=== PATIENT | female | born 1980 | race American Indian/Alaskan Native ===

== ENCOUNTER 2020-02-04 12:25 | Emergency (ER) | payer SELFPAY ==
[2020-02-04 12:33] VITALS: BP 108/65
--- NOTE | 2020-02-04 12:46 | Event Note ---
ED Screening Note ED Screening Note: lower abd discomfort since IUD removal states that she had an IUD removed 01/23/2020 states that she went back to [facility] states that they did a test and it was negative states they wrote her toradol to take and doxycycline states she was having dysuria but that resolved no fever no vaginal bleeding no n/v/d in the last three days PMHx none no allergies to meds This initial assessment/diagnostic orders/clinical plan/treatment(s) is/are subject to change based on patients health status, clinical progression and re- assessment by fellow clinical providers in the ED. Further treatment and workup at subsequent clinical providers discretion. Patient/guardian urged not to elope from the ED as their condition may be serious if not clinically assessed and managed. Initial orders include: ua, urine preg, US
[2020-02-04 13:12] LABS: Bacteria,Urine 1+ /HPF (Negative); Bilirubin,Urine NEG (Negative); Blood,Urine NEG (Negative); Color,Urine Yellow (Yellow); Mucus,Urine FEW /HPF; Protein,Urine <15 mg/dL mg/dL (Negative)
[2020-02-04 13:13] LABS: HCG Qualitative,Urine Negative (Negative)
--- NOTE | 2020-02-04 14:50 | Ultrasound Report ---
PELVIC ULTRASOUND INDICATION: Recent IUD removal, lower abdominal pain COMPARISON: None TECHNIQUE: Transabdominal and endovaginal FINDINGS: On transabdominal study uterus measures 8.2 x 5.4 x 6.3 cm. Endometrial stripe on the endov aginal study measures 10 mm.No uterine abnormalities are seen. No fluid is seen within the endometria l canal. No IUD or fragments are identified. Left ovary is not definitely seen. In the left adnexal area there is a 3.6 cm cyst without an obvious solid component and without vascularity. This is adjacent to an area of apparent free fluid. What is possibly the left ovary is noted just posterior to this area. The right ovary measures 6.8 cm in length and shows blood flow. Right ovary contains a solid or promi nently complex cystic area measuring 4.5 cm with mixed internal echogenicity but without obvious bloo d flow though probably this is a complex cystic region. Other small complex ovarian cysts are seen. Moderate amount of free fluid is seen without significant internal echoes. IMPRESSION: 1. No uterine abnormality is seen. No IUD or IUD fragments are noted. No obvious uterine injury is id entified. 2. Right ovarian complex lesion, probably a complex cyst as above. This probably is a hemorrhagic cys t but I would recommend follow-up. 3. Benign-appearing simple cyst in the left adnexal area but without obvious association with a oscar l left ovary. The left ovary itself is only questionably seen. I doubt this is significant but recomm end follow-up. 4. Moderate amount of free fluid is seen in the pelvis but without internal echogenicity to suggest b lood. This is nonspecific. Signer Name: Miki Gunderson MD Signed: 02/04/2020 2:46 PM Workstation Name: [id number]
[2020-02-04] MEDS ORDERED: KETOROLAC 30 MG/1 ML INJ IV ONE (15:15)
[2020-02-04 15:27] LABS: Basophils % (Auto) 0.1 % (0.0-1.8); Eosinophils % (Auto) 0.2 % (0.0-4.3); Hematocrit 30.9 % (30.3-42.9); Hemoglobin 10.3 gm/dl (10.1-14.3); Lymphocytes # (Auto) 0.7 K/mm3 (1.2-5.4); Lymphocytes % (Auto) 4.5 % (13.4-35.0); Mean Corpuscular HGB Conc 34 % (30-34); Mean Corpuscular Volume 88 fl (79-97); Monocytes # (Auto) 1.3 K/mm3 (0.0-0.8); Monocytes % (Auto) 9.3 % (0.0-7.3); Platelet Count 494 K/mm3 (140-440); Red Blood Count 3.53 M/mm3 (3.65-5.03); Red Cell Distribution Width 14.2 % (13.2-15.2)
[2020-02-04] MEDS ORDERED: SODIUM CHLORIDE 0.9% 1000 ML 1,000 ML IV ONE (15:31)
[2020-02-04] MEDS ORDERED: MORPHINE 4 MG/1 ML INJ IV ONE (15:31)
[2020-02-04] MEDS ORDERED: ONDANSETRON 4 MG/2 ML INJ IV ONE (15:31)
[2020-02-04 15:51] LABS: Alanine Aminotransferase 8 units/L (7-56); Albumin 2.8 g/dL (3.9-5); BUN/Creatinine Ratio 11; Bilirubin,Direct 0.2 mg/dL (0-0.2); Blood Urea Nitrogen 8 mg/dL (7-17); Calcium 8.6 mg/dL (8.4-10.2); Hemolysis Index 4
[2020-02-04] MEDS ORDERED: POTASSIUM CHLORIDE ER 20 MEQ TAB PO ONE (15:56)
--- NOTE | 2020-02-04 16:26 | Emergency Department Report ---
ED Female HPI - General Chief complaint: Abdominal Pain Stated complaint: ABD PAIN Time Seen by Provider: 02/04/20 12:42 Source: patient Mode of arrival: Ambulatory Limitations: No Limitations - History of Present Illness Initial comments: This is a 39-year-old female nontoxic, well nourished in appearance, no acute signs of distress presents to the ED with c/o of pelvic pain 3 weeks. Stated symptoms has started after IUD was removed. Patient is taking Doxy and flagyl x2 days. Patient denies any n/v. Patient describes pelvic pain as cramping and aching with level of 8/10 diffuse. Patient denies chest pain, short of breath, fever, hemoptysis, blood in stool, chills, headache, stiff neck, numbness or tingling. Agrees to dysuria. Patient denies any diarrhea or constipation. Denies any vaginal discharge or vaginal bleeding. Denies any flank pain. Denies any blood in stool. Patient denies any recent travels. Patient denies any giovanny rgies or significant PMH. MD Complaint: pelvic pain -: week(s) (3) Radiation: non-radiating Severity: mild Severity scale (0 -10): 8 Quality: cramping Consistency: intermittent Improves with: none Worsens with: none Associated Symptoms: dysuria, other (pelvic pain). denies: vaginal discharge, vaginal bleeding, abdominal pain, nausea/vomiting, fever/chills, headaches, loss of appetite, hematuria, rash, seizure, shortness of breath, syncope, weakness - Related Data Previous Rx's Medication Instructions Recorded Last Taken Type cephALEXin [Keflex] 500 mg PO Q8HR #21 cap 02/04/20 Unknown Rx Allergies Allergy/AdvReac Type Severity Reaction Status Date / Time No Known Allergies Allergy Unverified 02/04/20 12:42 ED Review of Systems ROS: Stated complaint: ABD PAIN Other details as noted in HPI Constitutional: denies: chills, fever Eyes: denies: eye pain, eye discharge, vision change ENT: denies: ear pain, throat pain Respiratory: denies: cough, shortness of breath, wheezing Cardiovascular: denies: chest pain, palpitations Endocrine: no symptoms reported Gastrointestinal: denies: abdominal pain, nausea, diarrhea Genitourinary: dysuria. denies: urgency, frequency, hematuria, discharge, abnormal menses, dyspareunia Musculoskeletal: denies: back pain, joint swelling, arthralgia Skin: denies: rash, lesions Neurological: denies: headache, weakness, paresthesias Psychiatric: denies: anxiety, depression Hematological/Lymphatic: denies: easy bleeding, easy bruising ED Past Medical Hx - Past Medical History Previous Medical History?: No - Surgical History Past Surgical History?: No - Social History Smoking Status: Current Every Day Smoker Substance Use Type: Alcohol - Medications Home Medications: Home Medications Medication Instructions Recorded Confirmed Last Taken Type cephALEXin [Keflex] 500 mg PO Q8HR #21 cap 02/04/20 Unknown Rx ED Physical Exam - General Limitations: No Limitations General appearance: alert, in no apparent distress - Head Head exam: Present: atraumatic, normocephalic - Eye Eye exam: Present: normal appearance - Neck Neck exam: Present: normal inspection, full ROM. Absent: tenderness, meningismus, lymphadenopathy - Respiratory Respiratory exam: Present: normal lung sounds bilaterally. Absent: respiratory distress, wheezes, rales, rhonchi, stridor, chest wall tenderness, accessory muscle use, decreased breath sounds, prolonged expiratory - Cardiovascular Cardiovascular Exam: Present: regular rate, normal rhythm, normal heart sounds. Absent: irregular rhythm, systolic murmur, diastolic murmur, rubs, gallop - GI/Abdominal GI/Abdominal exam: Present: soft, tenderness (bilateral lower abdominal area), normal bowel sounds. Absent: distended, guarding, rebound, rigid, diminished bowel sounds - External exam: Present: normal external exam, other (Handbag Framer Elyes present during exam). Absent: erythema, swelling, lesions, lacerations, ecchymosis, b leeding Speculum exam: Present: cervical discharge, other (Handbag Framer Elyse present during exam). Absent: erythema, vaginal discharge, vaginal bleeding, foreign body, tissue, laceration Bi-manual exam: Present: cervical motion tendernes, other (Handbag Framer Elyse present during exam). Absent: adnexal tenderness, adnexal mass, uterine enlargement, uterine tenderness - Extremities Exam Extremities exam: Present: normal inspection, full ROM, normal capillary refill. Absent: tenderness - Back Exam Back exam: Present: normal inspection, full ROM. Absent: tenderness, CVA tenderness (R), CVA tenderness (L), muscle spasm, paraspinal tenderness, vertebral tenderness, rash noted - Neurological Exam Neurological exam: Present: alert, oriented X3, normal gait - Psychiatric Psychiatric exam: Present: normal affect, normal mood - Skin Skin exam: Present: warm, dry, intact, normal color. Absent: rash ED Course Vital Signs 02/04/20 12:29 Temperature 98.8 F Pulse Rate 93 H Respiratory 20 Rate Blood Pressure 108/65 O2 Sat by Pulse 100 Oximetry - Reevaluation(s) Reevaluation #1: 02/04/20 16:36 Patient is speaking in full sentences with no signs of distress noted. ED Medical Decision Making - Lab Data Result diagrams: 02/04/20 15:11 02/04/20 15:11 Lab Results 02/04/20 02/04/20 02/04/20 Range/Units 12:57 15:11 15:11 WBC 14.4 H (4.5-11.0) K/mm3 RBC 3.53 L (3.65-5.03) M/mm3 Hgb 10.3 (10.1-14.3) gm/dl Hct 30.9 (30.3-42.9) % MCV 88 (79-97) fl MCH 29 (28-32) pg MCHC 34 (30-34) % RDW 14.2 (13.2-15.2) % Plt Count 494 H (140-440) K/mm3 Lymph % (Auto) 4.5 L (13.4-35.0) % [place] % (Auto) 9.3 H (0.0-7.3) % Eos % (Auto) 0.2 (0.0-4.3) % Baso % (Auto) 0.1 (0.0-1.8) % Lymph # 0.7 L (1.2-5.4) K/mm3 [place] # 1.3 H (0.0-0.8) K/mm3 Eos # 0.0 (0.0-0.4) K/mm3 Baso # 0.0 (0.0-0.1) K/mm3 Seg Neutrophils % 85.9 H (40.0-70.0) % Seg Neutrophils # 12.3 H (1.8-7.7) K/mm3 Sodium 136 L (137-145) mmol/L Potassium 3.3 L (3.6-5.0) mmol/L Chloride 98.5 (98-107) mmol/L Carbon Dioxide 23 (22-30) mmol/L Anion Gap 18 mmol/L BUN 8 (7-17) mg/dL Creatinine 0.7 (0.7-1.2) mg/dL Estimated GFR > 60 ml/min BUN/Creatinine Ratio 11 % Glucose 105 H (65-100) mg/dL Calcium 8.6 (8.4-10.2) mg/dL Total Bilirubin 0.50 (0.1-1.2) mg/dL Direct Bilirubin 0.2 (0-0.2) mg/dL Indirect Bilirubin 0.3 mg/dL AST 10 (5-40) units/L ALT 8 (7-56) units/L Alkaline Phosphatase 83 (35-129) units/L Total Protein 7.8 (6.3-8.2) g/dL Albumin 2.8 L (3.9-5) g/dL Albumin/Globulin Ratio 0.6 % Urine Color Yellow (Yellow) Urine Turbidity Slightly-cloudy (Clear) Urine pH 6.0 (5.0-7.0) Ur Specific [place] 1.012 (1.003-1.030) Urine Protein <15 mg/dl (Negative) mg/dL Urine Glucose (UA) Neg (Negative) mg/dL Urine Ketones Neg (Negative) mg/dL Urine Blood Neg (Negative) Urine Nitrite Neg (Negative) Urine Bilirubin Neg (Negative) Urine Urobilinogen 4.0 (<2.0) mg/dL Ur Leukocyte Esterase Sm (Negative) Urine WBC (Auto) 9.0 H (0.0-6.0) /HPF Urine RBC (Auto) 7.0 (0.0-6.0) /HPF U Epithel Cells (Auto) 18.0 H (0-13.0) /HPF Urine Bacteria (Auto) 1+ (Negative) /HPF Urine Mucus Few /HPF Urine HCG, Qual Negative (Negative) - Radiology Data Addendum: Impression: 4. Mild lymph node prominence in the retroperitoneum and pelvis. These may be reactive to the process in the pelvis but I would suggest follow-up. 5. Left lower lobe nodule. Recommend follow-up. INCIDENTAL PULMONARY NODULE RECOMMENDATIONS Solid Nodule size* <6 mm -- Single or Multiple - Low Risk Patient: No routine follow-up - High Risk Patient: Optional CT at 12 months Solid Nodule size 6-8 mm -- Single - Low Risk Patient: CT at 6-12 months, then consider CT at 18-24 months - High Risk Patient: CT at 6-12 months, then CT at 18-24 months Solid Nodule size 6-8 mm -- Multiple - Low Risk Patient: CT at 3-6 months, then consider CT at 18-24 months - High Risk Patient: CT at 3-6 months, then CT at 18-24 months Solid Nodule size >8 mm -- Single - Low Risk or High Risk Patient: Consider CT at 3 months, PET/CT, or tissue sampling Solid Nodule size >8 mm -- Multiple - Low Risk Patient: CT at 3-6 months, then consider CT at 18-24 months - High Risk Patient: CT at 3-6 months, then CT at 18-24 months S ubsolid Nodule (Ground glass) <6 mm - No routine follow-up Subsolid Nodule (Ground glass) >=6 mm - CT at 6-12 months to confirm persistence, then CT every 2 years until 5 years Subsolid Nodule (Part solid) <6 mm - No routine follow-up Subsolid Nodule (Part solid) >=6 mm - CT at 3-6 months to confirm persistence. If unchanged and solid component remains <6mm, annual CT should be performed for 5 years. Subsolid Nodule (Multiple) <6 mm - CT at 3-6 months. If stable, consider CT at 2 and 4 years. Subsolid Nodule (Multiple) >=6 mm - CT at 3-6 months. Subsequent management based on the most suspicious nodule(s). Note These recommendations do not apply to lung cancer screening, patients with immunosuppression, or patients with known primary cancer. Note Newly detected indeterminate nodule in persons 35 years of age or older. Persons under the age of 35 should not receive follow-up unless there is a known primary cancer. Low Risk Patient -- minimal or absent history of smoking and of other known risk factors. High Risk Patient -- history of smoking or of other known risk factors. *Dimensions are average of long and short axes, rounded to the nearest millimeter. Based on 2017 Fleischner Society Guidelines found in Radiology 2017 284:228-243. [email or web address]/[email or web address] Signer Name: Miki Gunderson MD Signed: 02/04/2020 4:04 PM Workstation Name: [id number] CT ABDOMEN AND PELVIS WITH CONTRAST INDICATION: Recent IUD removal, lower abdominal pain CONTRAST: 100 cc Omnipaque 300 IV COMPARISON: Pelvic ultrasound today All CT scans at this location are performed using CT dose reduction for ALARA by means of automated exposure control. NOTE: Resolution is decreased and artifact is introduced by the patient's size. FINDINGS: Lung bases are clear of infilt rates. In the anterolateral aspect of the left lower lobe peripherally a 6 mm solid nodule is seen. No other nodules are noted. No pneumoperitoneum is seen. No significant abdominal wall herniation is noted though there is mild midline laxity. Liver shows mild fatty infiltration though no obvious focal lesions. Liver is enlarged and has a length of 20.6 cm. Spleen appears within normal limits. No left urinary obstructive changes are seen. However, there is mild prominence of the right renal collecting system and upper right ureter extending to the pelvic brim level without calculi seen. I see no focal lesions of the kidneys, adrenals, or pancreas. Gallbladder and bile ducts appear within normal limits. No evidence of bowel obstruction is seen. Appendix appears within normal limits. Mild lymph node prominence is seen in the periaortic area with multiple small nodes seen measuring up to short axis diameter of 8 mm. These continue in the common iliac areas bilaterally and there are mildly prominent pelvic sidewall nodes in the obturator region measuring up to 2.9 cm in length but with short axis diameters are only up to 8 mm. Several shotty nodes are seen in the inguinal areas bilaterally but particularly in the right inguinal area there are nodes which are mildly prominent without obvious fatty elijah measuring up to short axis diameter of 12 mm. No mesenteric adenopathy is seen. No other adenopathy is noted. Uterus shows no definite abnormalities. There are multiple bilateral adnexal cystic areas. On the right largest cystic area measures 5.6 cm in length and appears to likely correspond to the complex lesion seen on the right ovary on ultrasound. This has an internal density of 25 Hounsfield units mildly above the water range and is fairly homogenous internally with a thin wall. A similar left adnexal cystic area is seen which is ovoid in shape measuring 5.8 cm in length but only 2.6 cm in transverse width. This has a similar appearance and is the internal density measures 20 Hounsfield units at the upper end of the water range. Multiple other smaller cystic areas are seen in both adnexal regions. In the upper portion of the left adnexal region extending well into the upper pelvis is a loculated collection of water density fluid at 14 Hounsfield units which measures 5.8 cm in greatest diameter as seen on coronal images. This does not have a perceptible wall. A similar collection of what is probably loculated peritoneal fluid rather than a true cyst is seen in the left cul-de-sac region measuring 5 cm in length without a perceptible wall and with internal density in the water range at 14 Hounsfield units. There may be mild inflammation of the tissues in this region with mild stranding seen. The sigmoid colon extends through this general area and shows diverticulosis. The mild stranding in the pelvis does include part of this region of the sigmoid colon though I do not strongly favor this representing acute diverticulitis and this may be secondary to the generalized pelvic process. No hematoma is identified. IMPRESSION: 1. Complex cystic areas noted bilaterally in the pelvis as above. Some of these areas appear to represent true cystic areas probably related to the ovaries but others appear more likely represent loculated peritoneal fluid. There is a mildly inflamed appearance to this general area. I cannot exclude the possibility of pelvic inflammatory disease or sequelae with tubo-ovarian complex is. As discussed above there is some stranding which reaches an area of the sigmoid colon with diverticulosis but I do not strongly favor this representing acute diverticulitis. 2. There is evidence of mild right urinary obstruction involving the renal collecting system and upper right ureter which likely is associated with the findings above as rotation appears to extend to this area. No calculi are seen. 3. Mild fatty infiltration of the liver with moderate hepatomegaly Signer Name: Miki Gunderson MD Signed: 02/04/2020 3:52 PM Workstation Name: [id number] PELVIC ULTRASOUND INDICATION: Recent IUD removal, lower abdominal pain COMPARISON: None TECHNIQUE: Transabdominal and endovaginal FINDINGS: On transabdominal study uterus measures 8.2 x 5.4 x 6.3 cm. Endometrial stripe on the endovaginal study measures 10 mm.No uterine abnormalities are seen. No fluid is seen within the endometrial canal. No IUD or fragments are identified. Left ovary is not definitely seen. In the left adnexal area there is a 3.6 cm cyst without an obvious solid component and without vascularity. This is adjacent to an area of apparent free fluid. What is possibly the left ovary is noted just posterior to this area. The right ovary measures 6.8 cm in length and shows blood flow. Right ovary contains a solid or prominently complex cystic area measuring 4.5 cm with mixed internal echogenicity but without obvious blood flow though probably this is a complex cystic region. Other small complex ovarian cysts are seen. Moderate amount of free fluid is seen without significant internal echoes. IMPRESSION: 1. No uterine abnormality is seen. No IUD or IUD fragments are noted. No obvious uterine injury is identified. 2. Right ovarian c omplex lesion, probably a complex cyst as above. This probably is a hemorrhagic cyst but I would recommend follow-up. 3. Benign-appearing simple cyst in the left adnexal area but without obvious association with a normal left ovary. The left ovary itself is only questionably seen. I doubt this is significant but recommend follow-up. 4. Moderate amount of free fluid is seen in the pelvis but without internal echogenicity to suggest blood. This is nonspecific. Signer Name: Miki Gunderson MD Signed: 02/04/2020 1:46 PM Workstation Name: [id number] - Medical Decision Making This is a 39-year-old female that presents with BV, possible STD and UTI. Patient is stable and was examined by me. Patient is currently taking Flagyl will so instructed patient to continue taking Flagyl for BV. CT and ultrasound has been obtained and dictated by radiologist. Patient had strict precautions to follow-up with a primary care doctor for abnormal CT results. Patient received Rocephin and azithromycin. Labs obtained. Patient was instructed to follow-up with a primary care doctor in 3-5 days or if symptoms worsen and continue return to emergency room as soon as possible. At time of discharge, the patient does not seem toxic or ill in appearance. No acute signs of dis tress noted. Patient agrees to discharge treatment plan of care. No further questions noted by the patient. Critical care attestation.: If time is entered above; I have spent that time in minutes in the direct care of this critically ill patient, excluding procedure time. ED Disposition Clinical Impression: Cervical motion tenderness, Possible exposure to STD, Bacterial vaginosis UTI (urinary tract infection) Qualifiers: Urinary tract infection type: acute cystitis Hematuria presence: without hematuria Qualified Code(s): N30.00 - Acute cystitis without hematuria Disposition: TO HOME OR SELFCARE Is pt being admited?: No Does the pt Need Aspirin: No Condition: Stable Instructions: Bacterial Vaginosis (ED), Safe Sex (ED), Urinary Tract Infection in Women (ED) Additional Instructions: Follow-up with a primary care doctor in 3-5 days or if symptoms worsen and c ontinue return to emergency room as soon as possible. Continue taking antibiotics as prescribed to you during your previous doctor's recommendations. Prescriptions: cephALEXin [Keflex] 500 mg PO Q8HR #21 cap Referrals: PRIMARY MD KAROLINA [Primary Care Provider] - 3-5 Days RYAN ERAZO MD [Staff Physician] - 3-5 Days Forms: Work/School Release Form(ED)
--- NOTE | 2020-02-04 16:57 | Cat Scan Report ---
CT ABDOMEN AND PELVIS WITH CONTRAST INDICATION: Recent IUD removal, lower abdominal pain CONTRAST: 100 cc Omnipaque 300 IV COMPARISON: Pelvic ultrasound today All CT scans at this location are performed using CT dose reduction for ALARA by means of automated e xposure control. NOTE: Resolution is decreased and artifact is introduced by the patient's size. FINDINGS: Lung bases are clear of infiltrates. In the anterolateral aspect of the left lower lobe per ipherally a 6 mm solid nodule is seen. No other nodules are noted. No pneumoperitoneum is seen. No significant abdominal wall herniation is noted though there is mild m idline laxity. Liver shows mild fatty infiltration though no obvious focal lesions. Liver is enlarged and has a length of 20.6 cm. Spleen appears within normal limits. No left urinary obstructive change s are seen. However, there is mild prominence of the right renal collecting system and upper right ur eter extending to the pelvic brim level without calculi seen. I see no focal lesions of the kidneys, adrenals, or pancreas. Gallbladder and bile ducts appear within normal limits. No evidence of bowel o bstruction is seen. Appendix appears within normal limits. Mild lymph node prominence is seen in the periaortic area with multiple small nodes seen measuring up to short axis diameter of 8 mm. These continue in the common iliac areas bilaterally and there are m ildly prominent pelvic sidewall nodes in the obturator region measuring up to 2.9 cm in length but wi th short axis diameters are only up to 8 mm. Several shotty nodes are seen in the inguinal areas bila terally but particularly in the right inguinal area there are nodes which are mildly prominent withou t obvious fatty elijah measuring up to short axis diameter of 12 mm. No mesenteric adenopathy is seen. No other adenopathy is noted. Uterus shows no definite abnormalities. There are multiple bilateral adnexal cystic areas. On the rig ht largest cystic area measures 5.6 cm in length and appears to likely correspond to the complex lesi on seen on the right ovary on ultrasound. This has an internal density of 25 Hounsfield units mildly above the water range and is fairly homogenous internally with a thin wall. A similar left adnexal cy stic area is seen which is ovoid in shape measuring 5.8 cm in length but only 2.6 cm in transverse wi dth. This has a similar appearance and is the internal density measures 20 Hounsfield units at the up per end of the water range. Multiple other smaller cystic areas are seen in both adnexal regions. In the upper portion of the left adnexal region extending well into the upper pelvis is a loculated zara ection of water density fluid at 14 Hounsfield units which measures 5.8 cm in greatest diameter as se en on coronal images. This does not have a perceptible wall. A similar collection of what is probably loculated peritoneal fluid rather than a true cyst is seen in the left cul-de-sac region measuring 5 cm in length without a perceptible wall and with internal density in the water range at 14 Hounsfiel d units. There may be mild inflammation of the tissues in this region with mild stranding seen. The s igmoid colon extends through this general area and shows diverticulosis. The mild stranding in the pe lvis does include part of this region of the sigmoid colon though I do not strongly favor this repres enting acute diverticulitis and this may be secondary to the generalized pelvic process. No hematoma is identified. IMPRESSION: 1. Complex cystic areas noted bilaterally in the pelvis as above. Some of these areas appear to repre sent true cystic areas probably related to the ovaries but others appear more likely represent locula kalyani peritoneal fluid. There is a mildly inflamed appearance to this general area. I cannot exclude th e possibility of pelvic inflammatory disease or sequelae with tubo-ovarian complex is. As discussed a cami there is some stranding which reaches an area of the sigmoid colon with diverticulosis but I do not strongly favor this representing acute diverticulitis. 2. There is evidence of mild right urinary obstruction involving the renal collecting system and uppe r right ureter which likely is associated with the findings above as rotation appears to extend to th is area. No calculi are seen. 3. Mild fatty infiltration of the liver with moderate hepatomegaly Signer Name: Miki Gunderson MD Signed: 02/04/2020 4:52 PM Workstation Name: [id number]
[2020-02-04] MEDS ORDERED: AZITHROMYCIN 250 MG TAB PO ONE (17:18)
[2020-02-04] MEDS ORDERED: LIDOCAINE-MPF (1%) 10 MG/1 ML VIAL 5 ML INFILTRATI ONE (17:18)
== END 2020-02-04 18:05 | disposition home or self-care (01) ==
LOC: ED 12:25
DX: N39.0 Urinary tract infection, site not specified (principal); N76.0 Acute vaginitis; B96.89 Other specified bacterial agents as the cause of diseases classified elsewhere; Z20.2 Contact with and (suspected) exposure to infections with a predominantly sexual mode of transmission
CPT/HCPCS: 36415; 74177; 76830; 76856; 80048; 80076; 81001; 81025; 85025; 87086; 87210; 87591; 96372; 96374; 96375; 99285; J0696; J2270; J2405; J7030; Q9967

== ENCOUNTER 2020-02-10 03:54 | Emergency (ER) | payer SELFPAY ==
[2020-02-10 04:01] VITALS: BP 98/68
[2020-02-10 04:44] LABS: Bacteria,Urine 1+ /HPF (Negative); Bilirubin,Urine NEG (Negative); Blood,Urine LG (Negative); Color,Urine Yellow (Yellow); Mucus,Urine FEW /HPF; Protein,Urine <15 mg/dL mg/dL (Negative); Urobilinogen,Urine < 2.0 mg/dL (<2.0)
[2020-02-10 05:28] LABS: Basophils % (Auto) 0.3 % (0.0-1.8); Eosinophils # (Auto) 0.1 K/mm3 (0.0-0.4); Eosinophils % (Auto) 1.4 % (0.0-4.3); Hematocrit 33.2 % (30.3-42.9); Hemoglobin 10.9 gm/dl (10.1-14.3); Lymphocytes % (Auto) 17.9 % (13.4-35.0); Mean Corpuscular HGB Conc 33 % (30-34); Mean Corpuscular Volume 88 fl (79-97); Monocytes # (Auto) 0.6 K/mm3 (0.0-0.8); Monocytes % (Auto) 11.1 % (0.0-7.3); Platelet Count 688 K/mm3 (140-440); Red Blood Count 3.79 M/mm3 (3.65-5.03); Red Cell Distribution Width 14.6 % (13.2-15.2)
--- NOTE | 2020-02-10 06:15 | Emergency Department Report ---
ED Female HPI - General Chief complaint: Vaginal Bleeding Stated complaint: BLEEDING AFTER TAKING RX Source: patient Mode of arrival: Ambulatory Limitations: No Limitations - History of Present Illness Initial comments: Patient is a 39-year-old -[place] female G3, , patient states she had IUD removed on 22 January , and was prescribed flat Flagyl for BV on follow-up post procedure. And started menses on 2 days ago. She is concerned for having 2 cycles in 1 month, as she had a short cycle on January 14 prior to IUD removal. pt denies vaginal dicharge, no back pain, no fever , no chills, no n/v, no pelvic pain . Pt is , denies concern for STI. MD Complaint: vaginal bleeding Onset/Timin -: days(s) Severity: moderate Severity scale (0 -10): 3 Quality: other (vaginal bleeding ) Consistency: constant Improves with: none Worsens with: none Are you Now?: No Last Menstrual Period: 02/07/20 EDC: 11/13/20 Associated Symptoms: vaginal bleeding. denies: vaginal discharge, abdominal pain, nausea/vomiting, fever/chills, headaches, loss of appetite, dysuria, hematuria, rash, seizure, shortness of breath, syncope, weakness - Related Data Sexually active: Yes : 3 Para: 3 A: 0 Previous Rx's Medication Instructions Recorded Last Taken Type cephALEXin [Keflex] 500 mg PO Q8HR #21 cap 02/04/20 Unknown Rx Ibuprofen [Motrin 800 MG tab] 800 mg PO Q8HR PRN #30 tablet 02/10/20 Unknown Rx Allergies Allergy/AdvReac Type Severity Reaction Status Date / Time No Known Allergies Allergy Unverified 02/04/20 12:42 ED Review of Systems ROS: Stated complaint: BLEEDING AFTER TAKING RX Other details as noted in HPI Constitutional: denies: chills, fever Eyes: denies: eye pain, eye discharge, vision change ENT: denies: ear pain, throat pain Respiratory: denies: cough, shortness of breath, wheezing Cardiovascular: denies: chest pain, palpitations Endocrine: no symptoms reported Gastrointestinal: denies: abdominal pain, nausea, diarrhea Genitourinary: hematuria. denies: urgency, dysuria, frequency Musculoskeletal: denies: back pain, joint swelling, arthralgia Skin: denies: rash, lesions Neurological: denies: headache, weakness, paresthesias Psychiatric: denies: anxiety, depression Hematological/Lymphatic: denies: easy bleeding, easy bruising ED Past Medical Hx - Past Medical History Previous Medical History?: No - Surgical History Past Surgical History?: No - Social History Smoking Status: Current Every Day Smoker Substance Use Type: Alcohol, Marijuana - Medications Home Medications: Home Medications Medication Instructions Recorded Confirmed Last Taken Type cephALEXin [Keflex] 500 mg PO Q8HR #21 cap 02/04/20 Unknown Rx Ibuprofen [Motrin 800 MG tab] 800 mg PO Q8HR PRN #30 tablet 02/10/20 Unknown Rx ED Physical Exam - General Limitations: No Limitations General appearance: alert, in no apparent distress - Head Head exam: Present: atraumatic, normocephalic - Eye Eye exam: Present: normal appearance - ENT ENT exam: Present: mucous membranes moist - Neck Neck exam: Present: normal inspection - Respiratory Respiratory exam: Present: normal lung sounds bilaterally. Absent: respiratory distress - Cardiovascular Cardiovascular Exam: Present: regular rate, normal rhythm, normal heart sounds. Absent: systolic murmur, diastolic murmur, rubs, gallop - GI/Abdominal GI/Abdominal exam: Present: soft, normal bowel sounds. Absent: distended, tenderness, guarding, rebound, rigid, bruit, hernia - Rectal Rectal exam: Present: deferred - External exam: Present: other (defered by patient ) - Extremities Exam Extremities exam: Present: normal inspection, full ROM, normal capillary refill. Absent: tenderness, pedal edema, joint swelling, calf tenderness - Back Exam Back exam: Present: normal inspection, full ROM. Absent: tenderness, CVA tenderness (R), CVA tenderness (L), muscle spasm - Neurological Exam Neurological exam: Present: alert, oriented X3, CN II-XII intact, normal gait - Psychiatric Psychiatric exam: Present: normal affect, normal mood - Skin Skin exam: Present: warm, dry, intact, normal color. Absent: rash ED Course Vital Signs 02/10/20 03:59 Temperature 98.0 F Pulse Rate 76 Respiratory 16 Rate Blood Pressure 98/68 O2 Sat by Pulse 93 Oximetry ED Medical Decision Making - Lab Data Result diagrams: 02/10/20 04:34 Labs 02/10/20 02/10/20 02/10/20 04:01 04:34 04:34 WBC 5.8 RBC 3.79 Hgb 10.9 Hct 33.2 MCV 88 MCH 29 MCHC 33 RDW 14.6 Plt Count 688 H Lymph % (Auto) 17.9 [place] % (Auto) 11.1 H Eos % (Auto) 1.4 Baso % (Auto) 0.3 Lymph # 1.0 L [place] # 0.6 Eos # 0.1 Baso # 0.0 Seg Neutrophils % 69.3 Seg Neutrophils # 4.0 HCG, Qual Negative Urine Color Yellow Urine Turbidity Slightly-cloudy Urine pH 6.0 Ur Specific [place] 1.012 Urine Protein <15 mg/dl Urine Glucose (UA) Neg Urine Ketones Neg Urine Blood Lg Urine Nitrite Neg Urine Bilirubin Neg Urine Urobilinogen < 2.0 Ur Leukocyte Esterase Sm Urine WBC (Auto) 6.0 Urine RBC (Auto) 49.0 U Epithel Cells (Auto) 18.0 H Urine Bacteria (Auto) 1+ Urine Mucus Few - Medical Decision Making This is abnormal uterine bleeding. H&H is stable. hCG is negative patient will follow-up with [facility] in 2 days. Patient denies abdominal pain at this time patient verbalizes agreement and understanding with discharge plan will be DC'd home in stable condition at this time Critical care attestation.: If time is entered above; I have spent that time in minutes in the direct care of this critically ill patient, excluding procedure time. ED Disposition Clinical Impression: Abnormal uterine bleeding (AUB) Disposition: DC-01 TO HOME OR SELFCARE Is pt being admited?: No Does the pt Need Aspirin: No Condition: Stable Instructions: Dysmenorrhea (ED) Prescriptions: Ibuprofen [Motrin 800 MG tab] 800 mg PO Q8HR PRN #30 tablet PRN Reason: pain Referrals: [facility] [Provider Group] - 3-5 Days Forms: Work/School Release Form(ED) Time of Disposition: 06:22
== END 2020-02-10 06:33 | disposition home or self-care (01) ==
LOC: ED 03:54
DX: N93.8 Other specified abnormal uterine and vaginal bleeding (principal); F17.200 Nicotine dependence, unspecified, uncomplicated; F12.10 Cannabis abuse, uncomplicated
CPT/HCPCS: 36415; 81001; 84703; 85025

== ENCOUNTER 2020-11-27 17:23 | Emergency (ER) | payer SELFPAY ==
--- NOTE | 2020-11-27 19:44 | Emergency Department Report ---
ED ENT HPI - General Stated complaint: TOOTHACHE Time Seen by Provider: 11/27/20 19:39 - History of Present Illness Initial comments: 40-year-old [place] female with past past medical history of left lower dental trauma was followed by pain and infectious history on multiple occasions due to have her tooth extraction but began to develop pain swelling and irritation to the tooth #17-18 region a couple days ago and it has not yet improved so presents emerge department for further evaluation and treatment options. Ports no fever, chills, sweats no odynophagia no no dysphagia no hemoptysis, no hematemesis no hematochezia. Reports no chest pain, no palpitations, no blurred vision but has a faint headache off and on Quality: aching, dull Consistency: constant Improves with: none Worsens with: none, eating, movement Context- Dental: history of dental caries, trauma Associated Symptoms: toothache. denies: sore throat, tinnitus, discharge from ear, rhinorrhea - Related Data Previous Rx's Medication Instructions Recorded Last Taken Type cephALEXin [Keflex] 500 mg PO Q8HR #21 cap 02/04/20 Unknown Rx Ibuprofen [Motrin 800 MG tab] 800 mg PO Q8HR PRN #30 tablet 02/10/20 Unknown Rx Amoxicillin [Amoxicillin TAB] 875 mg PO BID #20 tablet 11/27/20 Unknown Rx Chlorhexidine Mouthwash [Peridex] 15 ml MM BID #1 bottle 11/27/20 Unknown Rx Ketorolac [Toradol] 10 mg PO Q6H PRN #15 tablet 11/27/20 Unknown Rx Lidocaine Viscous 2% 5 ml MM Q3H PRN #120 udc 11/27/20 Unknown Rx Allergies Allergy/AdvReac Type Severity Reaction Status Date / Time No Known Allergies Allergy Unverified 02/04/20 12:42 ED Dental HPI - General Stated complaint: TOOTHACHE Time Seen by Provider: 11/27/20 19:39 - Related Data Previous Rx's Medication Instructions Recorded Last Taken Type cephALEXin [Keflex] 500 mg PO Q8HR #21 cap 02/04/20 Unknown Rx Ibuprofen [Motrin 800 MG tab] 800 mg PO Q8HR PRN #30 tablet 02/10/20 Unknown Rx Amoxicillin [Amoxicillin TAB] 875 mg PO BID #20 tablet 11/27/20 Unknown Rx Chlorhexidine Mouthwash [Peridex] 15 ml MM BID #1 bottle 11/27/20 Unknown Rx Ketorolac [Toradol] 10 mg PO Q6H PRN #15 tablet 11/27/20 Unknown Rx Lidocaine Viscous 2% 5 ml MM Q3H PRN #120 udc 11/27/20 Unknown Rx Allergies Allergy/AdvReac Type Severity Reaction Status Date / Time No Known Allergies Allergy Unverified 02/04/20 12:42 ED Review of Systems ROS: Stated complaint: TOOTHACHE Other details as noted in HPI Comment: All other systems reviewed and negative ED Past Medical Hx - Social History Smoking Status: Current Every Day Smoker Substance Use Type: Alcohol, Marijuana - Medications Home Medications: Home Medications Medication Instructions Recorded Confirmed Last Taken Type cephALEXin [Keflex] 500 mg PO Q8HR #21 cap 02/04/20 Unknown Rx Ibuprofen [Motrin 800 MG tab] 800 mg PO Q8HR PRN #30 tablet 02/10/20 Unknown Rx Amoxicillin [Amoxicillin TAB] 875 mg PO BID #20 tablet 11/27/20 Unknown Rx Chlorhexidine Mouthwash [Peridex] 15 ml MM BID #1 bottle 11/27/20 Unknown Rx Ketorolac [Toradol] 10 mg PO Q6H PRN #15 tablet 11/27/20 Unknown Rx Lidocaine Viscous 2% 5 ml MM Q3H PRN #120 udc 11/27/20 Unknown Rx ED Physical Exam - General General appearance: alert, in no apparent distress - Head Head exam: Present: atraumatic, normocephalic - Eye Eye exam: Present: normal appearance - ENT ENT exam: Present: mucous membranes moist, other (Tenderness with with palpating around tooth #1718 there is a dental fracture noted to tooth #18. With some adjacent erythema to the gingival region. No no no discharge. Airway is patent tongue and uvula are midline. No signs of any abscess, pharyngitis, Lizz's,) - Neck Neck exam: Present: normal inspection - Respiratory Respiratory exam: Present: normal lung sounds bilaterally. Absent: respiratory distress - Cardiovascular Cardiovascular Exam: Present: regular rate, normal rhythm. Absent: systolic murmur, diastolic murmur, rubs, gallop - GI/Abdominal GI/Abdominal exam: Present: soft, normal bowel sounds - Extremities Exam Extremities exam: Present: normal inspection - Back Exam Back exam: Present: normal inspection - Neurological Exam Neurological exam: Present: alert, oriented X3 - Psychiatric Psychiatric exam: Present: normal affect, normal mood - Skin Skin exam: Present: warm, dry, intact, normal color. Absent: rash Critical care attestation.: If time is entered above; I have spent that time in minutes in the direct care of this critically ill patient, excluding procedure time. ED Disposition Clinical Impression: Dentalgia, Infected dental caries Disposition: TO HOME OR SELFCARE Is pt being admited?: No Does the pt Need Aspirin: No Condition: Stable Instructions: Preventive Dental Care, Adult, Tooth Injuries, [id number], Dental Abscess, [id number], Tooth Injuries Prescriptions: Amoxicillin [Amoxicillin TAB] 875 mg PO BID #20 tablet Lidocaine Viscous 2% 5 ml MM Q3H PRN #120 udc PRN Reason: Pain, Moderate (4-6) Chlorhexidine Mouthwash [Peridex] 15 ml MM BID #1 bottle Ketorolac [Toradol] 10 mg PO Q6H PRN #15 tablet PRN Reason: Pain Referrals: [facility] [Outside] - 3-5 Days
[2020-11-27 19:59] VITALS: BP 98/45
== END 2020-11-27 21:00 | disposition home or self-care (01) ==
LOC: ED 17:23
DX: K02.9 Dental caries, unspecified (principal); F17.200 Nicotine dependence, unspecified, uncomplicated; F12.10 Cannabis abuse, uncomplicated; Z79.899 Other long term (current) drug therapy
CPT/HCPCS: 99282

== ENCOUNTER 2021-11-02 10:20 | Emergency (ER) | payer SELFPAY ==
[2021-11-02 10:36] VITALS: BP 111/91
[2021-11-02] MEDS ORDERED: IBUPROFEN 800 MG TAB PO ONE (11:23)
--- NOTE | 2021-11-02 12:08 | XRay Report ---
Right knee 3 views INDICATION: Right knee pain IMPRESSION: Small right knee effusion. No fracture or subluxation is identified. Signer Name: Mike Stone MD Signed: 11/02/2021 12:04 PM Workstation Name: [id number]
--- NOTE | 2021-11-02 12:55 | Emergency Department Report ---
ED Lower Extremity HPI - General Chief Complaint: Extremity Problem,Nontraumatic Stated Complaint: RT KNEE PAIN/SWOLLEN Time Seen by Provider: 11/02/21 11:11 Source: patient Mode of arrival: Ambulatory Limitations: No Limitations - History of Present Illness Initial Comments: This is a 41-year-old female nontoxic, well nourished in appearance, no acute signs of distress presents to the ED with c/o of right knee pain several days. Patient stated that she has been working a lot and walking a lot at work and developed some pains with swelling. Patient denies any injuries or trauma. Patient denies any numbness, tingling, fever, chills, nausea, vomiting, chest pain, shortness of breath, headache, stiff neck. Patient denies any joint swelling or joint redness. Patient denies decreased range of motion. Patient stated has decreased gait due to pain. Patient denies any allergies or significant past medical history. -: days(s) Injury: Knee: Right Place: work Severity: mild Severity scale (0 -10): 3 Improves With: immobilization Worsens With: weight bearing, movement, palpation Associated Symptoms: swelling, able to partially bear weight. denies: snap/pop sensation, numbness, tingling, unable to bear weight - Related Data Previous Rx's Medication Instructions Recorded Last Taken Type cephALEXin [Keflex] 500 mg PO Q8HR #21 cap 02/04/20 Unknown Rx Ibuprofen [Motrin 800 MG tab] 800 mg PO Q8HR PRN #30 tablet 02/10/20 Unknown Rx Amoxicillin [Amoxicillin TAB] 875 mg PO BID #20 tablet 11/27/20 Unknown Rx Chlorhexidine Mouthwash [Peridex] 15 ml MM BID #1 bottle 11/27/20 Unknown Rx Ketorolac [Toradol] 10 mg PO Q6H PRN #15 tablet 11/27/20 Unknown Rx Lidocaine Viscous 2% 5 ml MM Q3H PRN #120 udc 11/27/20 Unknown Rx Naproxen 500 mg PO Q12H PRN #12 tab 11/02/21 Unknown Rx Allergies Allergy/AdvReac Type Severity Reaction Status Date / Time No Known Allergies Allergy Verified 11/27/20 19:58 ED Review of Systems ROS: Stated complaint: RT KNEE PAIN/SWOLLEN Other details as noted in HPI Comment: All other systems reviewed and negative Constitutional: denies: chills, fever Eyes: denies: eye pain, eye discharge, vision change ENT: denies: ear pain, throat pain Respiratory: denies: cough, shortness of breath, wheezing Cardiovascular: denies: chest pain, palpitations Endocrine: no symptoms reported Gastrointestinal: denies: abdominal pain, nausea, diarrhea Genitourinary: denies: urgency, dysuria, discharge Musculoskeletal: denies: back pain, joint swelling, arthralgia Skin: denies: rash, lesions Neurological: denies: headache, weakness, paresthesias Psychiatric: denies: anxiety, depression Hematological/Lymphatic: denies: easy bleeding, easy bruising ED Past Medical Hx - Social History Smoking Status: Current Every Day Smoker Substance Use Type: Alcohol - Medications Home Medications: Home Medications Medication Instructions Recorded Confirmed Last Taken Type cephALEXin [Keflex] 500 mg PO Q8HR #21 cap 02/04/20 Unknown Rx Ibuprofen [Motrin 800 MG tab] 800 mg PO Q8HR PRN #30 tablet 02/10/20 Unknown Rx Amoxicillin [Amoxicillin TAB] 875 mg PO BID #20 tablet 11/27/20 Unknown Rx Chlorhexidine Mouthwash [Peridex] 15 ml MM BID #1 bottle 11/27/20 Unknown Rx Ketorolac [Toradol] 10 mg PO Q6H PRN #15 tablet 11/27/20 Unknown Rx Lidocaine Viscous 2% 5 ml MM Q3H PRN #120 udc 11/27/20 Unknown Rx Naproxen 500 mg PO Q12H PRN #12 tab 11/02/21 Unknown Rx ED Physical Exam - General Limitations: No Limitations General appearance: alert, in no apparent distress - Head Head exam: Present: atraumatic, normocephalic - Eye Eye exam: Present: normal appearance - Neck Neck exam: Present: normal inspection, full ROM. Absent: lymphadenopathy - Respiratory Respiratory exam: Absent: respiratory distress - Cardiovascular Cardiovascular Exam: Present: regular rate - Extremities Exam Extremities exam: Present: normal inspection, full ROM, tenderness, normal capillary refill. Absent: pedal edema, joint swelling, calf tenderness - Expanded Lower Extremity Exam Right Hip exam: Present: normal inspection, full ROM. Absent: tenderness, swelling Upper Leg exam: Present: normal inspection, full ROM. Absent: tenderness, swelling Knee exam: Present: normal inspection, full ROM, tenderness, full knee extension. Absent: swelling, abrasion, laceration, ecchymosis, deformity, crepidus, dislocation, erythema, effusion, pain w/ pronation/supination, posterior draw sign, pain/laxity with valgus, pain/laxity with varus Lower Leg exam: Present: normal inspection, full ROM. Absent: tenderness, swelling, abrasion, laceration, ecchymosis, deformity, crepidus, dislocation, erythema, palpable cord, Nuvia's sign Ankle exam: Present: normal inspection, full ROM. Absent: tenderness, swelling Foot/Toe exam: Present: normal inspection, full ROM. Absent: tenderness, swelling Neuro vascular tendon exam: Present: no vascular compromise Gait: Positive: observed and normal - Back Exam Back exam: Present: normal inspection, full ROM. Absent: tenderness, CVA tenderness (R), CVA tenderness (L), muscle spasm, paraspinal tenderness, vertebral tenderness, rash noted - Neurological Exam Neurological exam: Present: alert, oriented X3, normal gait - Psychiatric Psychiatric exam: Present: normal affect, normal mood - Skin Skin exam: Present: warm, dry, intact, normal color. Absent: rash ED Course Vital Signs 11/02/21 10:34 Temperature 97.8 F Pulse Rate 89 Respiratory 18 Rate Blood Pressure 111/91 [Right] O2 Sat by Pulse 98 Oximetry - Reevaluation(s) Reevaluation #1: 11/02/21 13:05 Patient is speaking in full sentences with no signs of distress noted. ED Lower Extremity MDM - Radiology Data [facility] [address] [place] [address] XRay Report Signed Patient: TAHIR MONTEZ MR# : [id number] : 1980 Acct:[id number] Age/Sex: 41 / F ADM Date: 11/02/21 Loc: ED Attending Dr: Ordering Physician: CHIRAG PAUL Date of Service: 11/02/21 Procedure(s): XR knee 3V RT Accession Number(s): [id number] cc: CHIRAG PAUL Fluoro Time In Minutes: Right knee 3 views INDICATION: Right knee pain IMPRESSION: Small right knee effusion. No fracture or subluxation is identified. Signer Name: Mike Stoen MD Signed: 11/02/2021 12:04 PM Workstation Name: [id number] Transcribed By: MAIRA Dictated By: Mike Stone MD Electronically Authenticated By: Mike Stone MD Signed Date/Time: 11/02/211203 DD/ 03 TD/TT: - Medical Decision Making This is a 41-year-old female that presents with right knee injury. Patient is stable and was examined by me. I referred patient to an orthopedic doctor for further evaluation for possible MRI. X-ray has been obtained and dictated by the radiologist. Patient is notified of the x-ray report with noted by the patient. Patient does have normal gait with some tenderness and no joint swelling. No ecchymosis. no joint redness or swelling. Not warm to touch. No signs of cellulites present. Patient received a knee immobilize. Patient was instructed to RICE therapy. Patient received Motrin for pain. Patient is discharged with Naproxen. At time of discharge, the patient does not seem toxic or ill in appearance. No acute signs of distress noted. Patient agrees to discharge treatment plan of care. No further questions noted by the patient. Critical care attestation.: If time is entered above; I have spent that time in minutes in the direct care of this critically ill patient, excluding procedure time. ED Disposition Clinical Impression: Right knee injury Qualifiers: Encounter type: initial encounter Qualified Code(s): S89.91XA - Unspecified injury of right lower leg, initial encounter Disposition: HOME / SELF CARE / HOMELESS Is pt being admited?: No Does the pt Need Aspirin: No Condition: Stable Instructions: How to Use a Knee Immobilizer, RICE Therapy for Routine Care of Injuries, [id number] Additional Instructions: Follow-up with a orthopedic doctor in 3-5 days or if symptoms worsen and continue return to emergency room as soon as possible. No physical activity that extremity until cleared by orthopedic doctor Prescriptions: Naproxen 500 mg PO Q12H PRN #12 tab PRN Reason: Pain , Severe (7-10) Referrals: FABIOLA TURCIOS MD [Primary Care Provider] - 3-5 Days DANA CRENSHAW MD [Staff Physician] - 3-5 Days Forms: Work/School Release Form(ED) Time of Disposition: 13:20
== END 2021-11-02 13:45 | disposition home or self-care (01) ==
LOC: ED 10:20
DX: S89.91XA Unspecified injury of right lower leg, initial encounter (principal); F17.200 Nicotine dependence, unspecified, uncomplicated; Z72.89 Other problems related to lifestyle; X50.1XXA Overexertion from prolonged static or awkward postures, initial encounter; Y93.89 Activity, other specified; Y92.89 Other specified places as the place of occurrence of the external cause; Y99.8 Other external cause status
CPT/HCPCS: 99283